=== PATIENT | female | born 1965 | race Caucasian/White ===

== ENCOUNTER → 2020-04-08 | Outpatient (CLI) | payer BC ==
[~2020-04-08] MED LIST: IOHEXOL 240 MG/ML 50ML VIAL. PO ONE; IOHEXOL 300 MG/ML 100ML VIAL. IV ONE
--- NOTE | 2020-04-08 13:56 | RAD ---
CT abdomen and pelvis with contrast History: Generalized abdominal pain, leukocytosis Technique: After the administration of intravenous contrast, CT imaging was performed of the abdomen and pelvis. Oral contrast was also given. Multiplanar images are reviewed. Exposure: One or more of the following individualized dose reduction techniques were utilized for this examination: 1. Automated exposure control 2. Adjustment of the mA and/or kV according to patient size 3. Use of iterative reconstruction technique. Comparison: None Findings: There is no significant abnormality of the visualized lung bases. There is no significant abnormality of the spleen or pancreas. 0.4 cm hypodense lesion of the lateral left lobe of the liver is too small to further accurately characterize. There is a 2.4 cm right adrenal nodule, density measurements about 43 Hounsfield units. Both kidneys enhance without hydronephrosis. There are about 4 hypodense foci of the left kidney and 6 foci on the right. Largest focus of the superior left kidney measures about 1.9 cm, density measurements suggestive of cyst 13 Hounsfield units. Largest focus of the mid right kidney measures about 2 cm, density measurements more suggestive of cyst at 18 Hounsfield units. There is a more medial focus of the mid to inferior right kidney about 1.9 cm internal density measurements greater than a simple cyst about 25 Hounsfield units. Other smaller foci are difficult to accurately characterize given smaller size. Gallbladder is present without obvious intraluminal abnormality by CT although appearance of segmental mild wall thickening near the fundus There is long segment wall thickening of proximal small bowel in the left abdomen, associated degree of dilatation up to about 3.6 cm. There is no significant inflammatory type change about the bowel. There is no free fluid or free air. Normal caliber appendix is visualized without adjacent inflammatory change. There is a 1.2 cm probable cyst of the left adnexa. Impression: 1. There is long segment proximal small bowel wall thickening in the left abdomen with associated degree of dilatation, evidence of enteritis. 2. There is indeterminate right adrenal nodule better characterized with thin section noncontrast CT. 3. There are hypodense foci of the bilateral kidneys, largest with density characteristics of cysts. There is indeterminate lesion of the inferior medial right kidney for which ultrasound characterization is advised. Smaller foci are difficult to further accurately characterize. 4. There is appearance of a small focus of wall thickening at the fundus of the gallbladder also better characterized by ultrasound. 5. There is likely small left adnexal cyst. Electronically signed by: Jorge Howard MD (04/08/2020 1:54 PM) [facility]
== END ==
LOC: CT 09:31
PROVIDERS: ATTEND Nurse Practitioner Gerontology
DX: N28.1 Cyst of kidney, acquired (principal); D72.829 Elevated white blood cell count, unspecified
CPT/HCPCS: 74177; Q9966; Q9967

== ENCOUNTER → 2020-04-14 | Outpatient (CLI) | payer BC ==
[~2020-04-14] MED LIST changes: +BUSP10TA PO; +FAMO-63 PO; +HYDR25SU18 RC; -IOHEXOL 240 MG/ML 50ML VIAL. PO ONE; -IOHEXOL 300 MG/ML 100ML VIAL. IV ONE; +OXYC1TAB15 PO
== END ==
LOC: LAB 14:32
PROVIDERS: ATTEND Surgery
DX: Z01.812 Encounter for preprocedural laboratory examination (principal); K64.9 Unspecified hemorrhoids; Z20.828 Contact with and (suspected) exposure to other viral communicable diseases
CPT/HCPCS: U0003-CS

== ENCOUNTER 2020-04-17 06:29 | Day surgery (SDC) | payer BC ==
[~2020-04-17] VITALS: Ht 160 cm; Wt 49.0 kg
[~2020-04-17 06:29] MED LIST changes: +ACETAMINOPHEN 500 MG TABLET PO PRN; +BUPIVACAINE-EPI 0.25%-1:200000 MPF 30 ML VIAL. INJ ONE; -BUSP10TA PO; -FAMO-63 PO; -HYDR25SU18 RC; -OXYC1TAB15 PO; +ceFAZolin SODIUM IV Push 1 GM VIAL. IVP PRN
[2020-04-17] MEDS ORDERED: HYDROmorphone 2 MG/ML VIAL IV PRN (07:00)
[2020-04-17] MEDS ORDERED: LIDOCAINE 1% PF 2 ML VIAL. ID PRN (07:00)
[2020-04-17] MEDS ORDERED: ONDANSETRON PF 4 MG/2 ML VIAL. IV PRN (07:00)
[2020-04-17] MEDS ORDERED: fentaNYL PF VIAL 100 MCG/2 ML VIAL IV PRN (07:00)
[2020-04-17] MEDS ORDERED: MORPHINE SULFATE 2 MG/ML VIAL. IV PRN (07:00)
[2020-04-17] MEDS ORDERED: IV RINGERS,LACTATED 1000ML 1,000 ML IV SCH (07:00)
[2020-04-17] MEDS ORDERED: PROCHLORPERAZINE 10 MG/2 ML VIAL. IV PRN (07:00)
[2020-04-17] MEDS ORDERED: BUSP10TA PO (07:06)
[2020-04-17] MEDS ORDERED: HYDR25SU18 RC (07:06)
[2020-04-17] MEDS ORDERED: FAMO-63 PO (07:08)
[2020-04-17] MEDS ORDERED: NEOMY/BACITR/POLYMYXIN OINT PACKET. TP ONE ×2 (07:09→07:42)
[2020-04-17] MEDS ORDERED: PROPOFOL 10 MG/ML (20ML) VIAL. IV ONE (07:17)
[2020-04-17] MEDS ORDERED: LIDOCAINE 2% PF 5 ML VIAL. ONE (07:20)
[2020-04-17] MEDS ORDERED: FAMOTIDINE 20 MG/2 ML VIAL ONE (07:21)
[2020-04-17] MEDS ORDERED: fentaNYL PF VIAL 100 MCG/2 ML VIAL ONE ×2 (07:23→08:34)
[2020-04-17] MEDS ORDERED: DEXAMETHASONE SOD PHOS 4 MG/ML VIAL ONE (07:25)
[2020-04-17] MEDS ORDERED: ONDANSETRON PF 4 MG/2 ML VIAL. ONE (07:26)
--- NOTE | 2020-04-17 08:18 | PDOC4 ---
Operative Note Operative Note Date: 1014 at 0 816 Preoperative diagnosis: Internal and external hemorrhoids Postoperative diagnosis: Same Procedure: Hemorrhoidectomy Surgeon: Carlos Enrique Specimen: Hemorrhoids x2 Dictation: Patient is a 55-year-old female was complained of internal and external hemorrhoids with bleeding sometimes fairly excessive. Procedure of hemorrhoidectomy was explained to the patient detail was benefits were also discussed including bleeding infection alternatives to this procedure also discussed with the patient is seem to understand and gave both verbal and written consent to have the procedure performed. Patient was taken to the operating room placed in supine position general anesthesia was initiated once patient was asleep and intubated she was placed in low lithotomy positioning and her perineum was prepped and draped usual sterile fashion using Betadine scrub and solution. Area around the hemorrhoids about the 9 o'clock position were injected with quarter percent Marcaine with epinephrine hemorrhoid was grasped with Allis clamp and using harmonic scalpel the hemorrhoid was excised. Second hemorrhoid about the 6 o'clock position also was excised with the harmonic scalpel. The wound was then dressed with antibiotic ointment ABD pad and mesh pants. Patient was awakened and extubated in the operating room taken to recovery in stable condition all sponge instrument needle counts listed as correct estimated blood loss 5 mL MARY MCDANIELS MD Apr 17, 2020 08:18
[2020-04-17] MEDS ORDERED: SEVOFLURANE 16 TO 30 MINUTES. IH ONE (08:19)
--- NOTE | 2020-04-17 08:20 | DISCH ---
DISCHARGE INSTRUCTIONS Condition on Discharge Condition on Discharge: Stable Activity After Discharge Activity Instructions for Disc: Avoid exertion Diet after Discharge Diet after Discharge: Regular Wound Incision Care Other wound/incision instructi: May shower in 24 hours Contacting the after DC Call your doctor for: If your condition worsens Follow-Up Follow up with: Dr. Mcdaniels in 2 weeks MARY MCDANIELS MD Apr 17, 2020 08:20
[2020-04-17] MEDS ORDERED: OXYC1TAB15 PO (08:32)
[2020-04-17] MEDS: fentaNYL PF VIAL 100 MCG/2 ML VIAL IV PRN ×2 (08:38→08:55)
[2020-04-17] MEDS ORDERED: oxyCODONE/APAP 5/325 1 TAB TABLET PO ONE (08:45)
[2020-04-17 09:15] VITALS: BP 152/90
== END 2020-04-17 09:30 | disposition home or self-care (01) ==
LOC: SURG 06:29
PROVIDERS: ATTEND Surgery
DX: K64.4 Residual hemorrhoidal skin tags (principal); K64.8 Other hemorrhoids; Z79.899 Other long term (current) drug therapy
CPT/HCPCS: J0690; J1100; J2405; J2704; J3010; J3490; A4461

== ENCOUNTER → 2020-04-28 | Outpatient (CLI) | payer BC ==
[2020-04-17 09:15] VITALS: BP 152/90
[~2020-04-28] MED LIST changes: -ACETAMINOPHEN 500 MG TABLET PO PRN; -BUPIVACAINE-EPI 0.25%-1:200000 MPF 30 ML VIAL. INJ ONE; +BUSP10TA PO; +FAMO-63 PO; +HYDR25SU18 RC; +OXYC1TAB15 PO; -ceFAZolin SODIUM IV Push 1 GM VIAL. IVP PRN
--- NOTE | 2020-04-28 08:30 | RAD ---
EXAM: ABDOMINAL ULTRASOUND. HISTORY: Abdominal pain, leukocytosis, adrenal nodule, adnexal lesion. COMPARISON: 04/08/2020, today's CT. FINDINGS: Sonographic evaluation of the abdomen was performed. The liver appears normal in parenchymal echotexture. There are no focal lesions. The spleen measures 9.1 cm. Multiple echogenic nonmobile masses along the gallbladder wall are consistent with polyps. These measure up to 6 mm. No internal flow is demonstrated on Doppler. There are no stones, pericholecystic fluid or wall thickening. There is no sonographic Young sign. The common duct measures 4 mm. The visualized portions of the head and body of the pancreas reveal no abnormality. The right kidney measures 12.7 cm. Cortical thickness and echogenicity are preserved. There is no hydronephrosis. Benign right renal cysts measure up to 1.9 cm. The left kidney measures 11.3 cm. Cortical thickness and echogenicity are preserved. There is no hydronephrosis. Benign left renal cysts measure up to 1.8 cm and are better seen on CT. A 2.5 x 2.0 cm suprarenal soft tissue mass is consistent with the known adrenal adenoma. Refer to today's CT for more information. The visualized portions of the abdominal aorta and inferior vena cava are grossly patent and normal in caliber. The adnexa are not assessed on this study. IMPRESSION: 1. Gallbladder polyps measure up to 6 mm. These are most likely benign at this size. Ultrasound follow-up is suggested in 6 months to confirm stability. 2. Bilateral renal cysts appear benign. No suspicious renal lesions by ultrasound. Follow-up in 6 months could confirm stability if there is persistent concern. 3. 2.5 cm right adrenal adenoma. Refer to today's CT for more information. Electronically signed by: Swapna Hoffman MD (04/28/2020 8:27 AM) [id number]
--- NOTE | 2020-04-28 08:38 | RAD ---
EXAM: CT abdomen without contrast. HISTORY: Adrenal mass. TECHNIQUE: CT of the abdomen was performed without intravenous contrast. One or more of the following individualized dose reduction techniques were utilized for this examination: 1. Automated exposure control. 2. Adjustment of the mA and/or kV according to patient size. 3. Use of iterative reconstruction technique. COMPARISON: 04/08/2020. FINDINGS: Images of the lung bases reveal mild atelectasis. Bone windows reveal no suspicious lesions. A right adrenal nodule measures 2.9 x 2.5 x 1.8 cm. It is somewhat heterogeneous, but mostly low in signal with attenuation as low as -5 Hounsfield units. There is no gross macroscopic fat. This is consistent with a benign adenoma. The left adrenal gland is unremarkable. The liver, gallbladder, spleen and pancreas are unremarkable by noncontrast CT. Hypoattenuating lesions within the kidneys are consistent with cysts on comparison with ultrasound and the prior examination. Refer to today's ultrasound for more information. The appendix is partially visualized but does not appear inflamed. The adnexa are not occluded. There is no small bowel obstruction. There are no pathologically enlarged lymph nodes. IMPRESSION: 1. 2.9 x 2.5 cm right adrenal mass consistent with a benign adenoma. Electronically signed by: Swapna Hoffman MD (04/28/2020 8:35 AM) [id number]
== END ==
LOC: US 07:14
PROVIDERS: ATTEND Nurse Practitioner Gerontology
DX: D35.01 Benign neoplasm of right adrenal gland (principal); K82.4 Cholesterolosis of gallbladder; N28.1 Cyst of kidney, acquired; K52.9 Noninfective gastroenteritis and colitis, unspecified; E27.8 Other specified disorders of adrenal gland
CPT/HCPCS: 74150; 76700